=== PATIENT | female | born 1980 | race Hispanic/Latino ===

== ENCOUNTER 2025-01-14 22:00 | Inpatient (IN) | payer SELFPAY ==
[~2025-01-14] VITALS: Ht 152.4 cm; Wt 88.5 kg
[2025-01-14] MEDS ORDERED: KETOROLAC TROMETHAMINE 30 MG/ML VIAL ONE (23:17)
[2025-01-14] MEDS: KETOROLAC TROMETHAMINE 30 MG/ML VIAL IV STA (23:21)
[2025-01-14] MEDS: SODIUM CHLORIDE 0.9% 1000ML 1,000 ML IV ONE (23:21)
[2025-01-14] MEDS: ONDANSETRON HCL INJ 2MG/ML 2ML 2 MG/ML VIAL IV STA (23:21)
[2025-01-15] VITALS (13 sets, daily range): BP systolic 103–122; BP diastolic 54–76; PULSE 76–90; RESP 14–20; TEMP 97.3–98.2; O2SAT 97–100
[2025-01-15] MEDS ORDERED: SODIUM CHLORIDE FLUSH 10 ML SYR INJ PRN (00:30)
[2025-01-15] MEDS: Morphine 4mg INJECTION 4 MG/ML INJ IV ONE (01:36)
[2025-01-15] MEDS: SODIUM CHLORIDE 0.9% 1000ML 1,000 ML IV SCH (06:24)
[2025-01-15] MEDS: ONDANSETRON HCL INJ 2MG/ML 2ML 2 MG/ML VIAL IV PRN (06:24)
[2025-01-15] MEDS: KETOROLAC TROMETHAMINE 30 MG/ML VIAL IV PRN (06:24)
[2025-01-15 08:06] LABS: BASOPHILS % 0.4 % (0.0-1.0); EOSINOPHILS % 0.8 % (0.0-6.0); LYMPHOCYTES % 25.3 % (18.0-39.1); MONOCYTES % 10.4 % (4.4-11.3); NEUTROPHILS % 62.8 % (38.7-80.0); RED CELL DISTRIBUTION WIDTH 12.7 % (11.7-14.4)
[2025-01-15 08:31] LABS: EST GLOMERULAR FILTRATION RATE 84.0 ML/MIN (>=60)
[2025-01-15] MEDS: HYDROMORPHONE 1MG/1ML INJ IV PRN (09:38)
[2025-01-15] MEDS: TAMSULOSIN HCL 0.4 MG CAP PO SCH (09:38)
[2025-01-15 18:46] LABS: LEUKOCYTE ESTERASE ,URINE NEGATIVE (NEGATIVE); PROTEIN,URINE DIPSTICK NEGATIVE (NEGATIVE); URINE UROBILINOGEN 0.2 mg/dL (0.2 - 1)
[2025-01-15 18:59] LABS: EPITHELIAL CELLS,URINE FEW /LPF; WBC,URINE (MAN) 0-5 /HPF (0-5)
[2025-01-16] VITALS (11 sets, daily range): BP systolic 101–126; BP diastolic 53–81; PULSE 61–92; RESP 16–20; TEMP 97.4–98.7; O2SAT 96–100
[2025-01-16 06:52] LABS: BASOPHILS % 0.5 % (0.0-1.0); EOSINOPHILS % 1.6 % (0.0-6.0); LYMPHOCYTES % 25.1 % (18.0-39.1); MONOCYTES % 9.6 % (4.4-11.3); NEUTROPHILS % 62.9 % (38.7-80.0); RED CELL DISTRIBUTION WIDTH 12.8 % (11.7-14.4)
[2025-01-16 07:21] LABS: EST GLOMERULAR FILTRATION RATE 75.0 ML/MIN (>=60)
[2025-01-16] MEDS: PROMETHAZINE 12.5MG/ NACL 0.9% 12.5 MG/50 ML BAG IV ONE (09:13)
[2025-01-16] MEDS: BISACODYL 10 MG SUPP PR ONE (10:38)
[2025-01-16] MEDS ORDERED: LIDOCAINE HCL 2% LOCAL INJ 5 ML SDV VIAL INJ ONE (15:15)
[2025-01-16] MEDS ORDERED: FENTANYL CITRATE/PF 100MCG/2 ML INJ ONE (15:15)
[2025-01-16] MEDS ORDERED: PROPOFOL IV EMULSION 10 MG/ML 20 ML VIAL ONE (15:16)
[2025-01-16] MEDS ORDERED: DEXAMETHASONE SOD PHOS INJ 4 MG/ML SDV ONE (16:09)
[2025-01-16] MEDS ORDERED: FAMOTIDINE 20 MG/2 ML VIAL IV ONE (16:09)
[2025-01-16] MEDS ORDERED: ACETAMINOPHEN 1000 MG/100 ML 100 ML IV ONE (16:09)
[2025-01-16] MEDS ORDERED: ONDANSETRON HCL INJ 2MG/ML 2ML 2 MG/ML VIAL ONE (16:09)
[2025-01-16] MEDS ORDERED: METOCLOPRAMIDE HCL 10 MG/2ML VIAL ONE (16:09)
[2025-01-17] VITALS: BP 100/64; PULSE 88; RESP 20; TEMP 98; O2SAT 97
[2025-01-17 04:00] VITALS: BP 95/61; PULSE 72; RESP 20; TEMP 98; O2SAT 100
[2025-01-17 08:00] VITALS: BP 137/73; PULSE 73; RESP 18; TEMP 98.1; O2SAT 98
[2025-01-17 08:13] VITALS: BP 137/73; PULSE 73; RESP 18; TEMP 98.1; O2SAT 98
[2025-01-17 08:21] LABS: BASOPHILS % 0.3 % (0.0-1.0); EOSINOPHILS % 0.2 % (0.0-6.0); LYMPHOCYTES % 19.0 % (18.0-39.1); MONOCYTES % 7.2 % (4.4-11.3); NEUTROPHILS % 73.0 % (38.7-80.0); RED CELL DISTRIBUTION WIDTH 12.7 % (11.7-14.4)
[2025-01-17 08:49] LABS: EST GLOMERULAR FILTRATION RATE 109.0 ML/MIN (>=60)
[2025-01-17] MEDS ORDERED: PHENAZOPYRIDIN100 MG PO (09:08)
[2025-01-17] MEDS ORDERED: MIRALAX17 GM PO (09:08)
[2025-01-17] MEDS ORDERED: CEPHALEXIN500 MG PO (09:08)
[2025-01-17] MEDS ORDERED: HYDROCODON-ACE1 EA11 PO (09:08)
== END 2025-01-17 10:41 | disposition home or self-care (01) | DRG 661 ==
LOC: FSED 22:29 → ERHOLD 01-15 00:26 → MED/SURG3 01-15 02:45
PROVIDERS: ADMIT Family Medicine Adult Medicine; ATTEND Family Medicine Adult Medicine
PROC: 0TC78ZZ Extirpation of Matter from Left Ureter, Via Natural or Artificial Opening Endoscopic (ICD-10-PCS; 2025-01-16)
PROC: BT1B1ZZ Fluoroscopy of Bladder and Urethra using Low Osmolar Contrast (ICD-10-PCS; 2025-01-16)
PROC: 0T778DZ Dilation of Left Ureter with Intraluminal Device, Via Natural or Artificial Opening Endoscopic (ICD-10-PCS; principal; 2025-01-16 15:42)
DX: N13.2 Hydronephrosis with renal and ureteral calculous obstruction (principal); R31.9 Hematuria, unspecified; E78.5 Hyperlipidemia, unspecified; K59.00 Constipation, unspecified; E66.9 Obesity, unspecified; Z90.710 Acquired absence of both cervix and uterus; Z68.38 Body mass index [BMI] 38.0-38.9, adult; Z87.442 Personal history of urinary calculi
CPT/HCPCS: 36415; 74018; 74176; 74420; 80048; 80053; 80076; 81001; 81003; 81025; 84702; 85025; 87086; 88300; 94799; 99284; C1758; C1766; C2617; J0696; J1100; J1171; J1308; J1885; J2003; J2270; J2405; J2550; J2765; J7030